=== PATIENT | female | born 1960 | race American Indian/Alaskan Native ===

== ENCOUNTER 2016-08-09 17:21 | Emergency (ER) | payer MEDICAID ==
[2016-08-09 17:21] VITALS: BMI 23.3
[2016-08-09 17:51] VITALS: RESP 14; TEMP 98.2
[2016-08-09] MEDS ORDERED: Sodium Chloride 0.9% 1,000 ML IV ONE (17:54)
--- NOTE | 2016-08-09 18:04 | C.PDOC ---
History Of Present Illness 56 y/o female, PMHx of cardiac disease 2 stents, presents to emergency department from the [facility] clinic today where she reportedly tripped on her cane and fell, landing on her knees. Patient states she walked 20 blocks today and has been feeling weak and lightheaded. Patient is a poor historian. Denies any chest pain, SOB, or other associated symptoms. Time Seen by Provider: 08/09/16 17:38 Chief Complaint (Nursing): Chest Pain History Per: Patient History/Exam Limitations: no limitations Onset/Duration Of Symptoms: Hrs Current Symptoms Are (Timing): Still Present Pain Scale Rating Of: 0 Additional History Per: EMS Past Medical History Reviewed: Historical Data, Nursing Documentation, Vital Signs Vital Signs: Last Vital Signs Temp 98.2 F 08/09/16 17:44 Pulse 61 08/09/16 17:44 Resp 14 08/09/16 17:44 BP 166/82 H 08/09/16 17:44 Pulse Ox 99 08/09/16 18:04 - Medical History PMH: Asthma, CVA, Depression, Diabetes, HTN, Hyperlipidemia - [facility] Procedures CONTRAST AORTOGRAM (04/23/13) CORONAR ARTERIOGR-2 CATH (04/23/13) INCIS W REM OF FORIEGN BODY OR DEV FROM SKIN & SUBCUT TISSUE (04/20/13) LEFT HEART CARDIAC CATH (04/23/13) LT HEART ANGIOCARDIOGRAM (04/23/13) Family History: States: Unknown Family Hx - Social History Hx Tobacco Use: No Hx Alcohol Use: No Hx Substance Use: Yes (methodone) - Immunization History Hx Tetanus Toxoid Vaccination: No Hx Influenza Vaccination: No Hx Pneumococcal Vaccination: No Review Of Systems Except As Marked, All Systems Reviewed And Found Negative. Constitutional: Positive for: Weakness. Negative for: Fever, Chills Cardiovascular: Positive for: Light Headedness. Negative for: Chest Pain, Palpitations Respiratory: Negative for: Shortness of Breath Gastrointestinal: Negative for: Nausea, Vomiting, Abdominal Pain Skin: Negative for: Rash Neurological: Negative for: Headache, Dizziness Physical Exam - Physical Exam Appears: Non-toxic, Other (lethargic, slurred speech) Skin: Warm, Dry Head: Atraumatic, Normacephalic Chest: Symmetrical Cardiovascular: Rhythm Regular Respiratory: Normal Breath Sounds, No Rales, No Rhonchi, No Wheezing Gastrointestinal/Abdominal: Soft, No Tenderness, No Guarding, No Rebound Back: Normal Inspection Extremity: Normal ROM, Capillary Refill (< 2 sec. ) Neurological/Psych: Oriented x3, Normal Speech, Normal Cognition ED Course And Treatment - Laboratory Results Result Diagrams: 08/09/16 18:26 08/09/16 18:26 Lab Interpretation: Abnormal (Blood sugar mildly elevated, urine with 19WBC, occ bacteria and 2+leukocyte esterase) ECG: Interpreted By Me ECG Rhythm: Sinus Bradycardia (with LVH), Nonspecific Changes ECG Interpretation: No Acute Changes O2 Sat by Pulse Oximetry: 99 (RA) Pulse Ox Interpretation: Normal Progress Note: EKG, Labs, fluids ordered. Reevaluation Time: 19:24 Reassessment Condition: Improved (Patient remains comfortable in ED. Patient has a prescription for Cipro given by Dr fernandes on 08/03 but has not taken any of the medication.) Disposition Counseled Patient/Family Regarding: Studies Performed, Diagnosis, Need For Followup, Rx Given - Disposition Referrals: Vida Fernandes MD [Staff Provider] - Disposition: HOME/ ROUTINE Disposition Time: 19:25 Condition: STABLE Additional Instructions: Take the Cipro as prescribed by Dr Fernandes last week. Instructions: Urinary Tract Infection in Women (ED) - Clinical Impression Clinical Impression: Urinary tract infectious disease - Scribe Statement The provider has reviewed the documentation as recorded by the Scribsherry Conn All medical record entries made by the Scribe were at my direction and personally dictated by me. I have reviewed the chart and agree that the record accurately reflects my personal performance of the history, physical exam, medical decision making, and the department course for this patient. I have also personally directed, reviewed, and agree with the discharge instructions and disposition.
[2016-08-09] MEDS ORDERED: Sodium Chloride 0.9% 1,000 ML ONE (18:26)
[2016-08-09 18:29] LABS: BASO % 0.6 % (0.0-2.0); EOS # 0.2 K/uL (0.0-0.7); HEMATOCRIT 40.1 % (34.0-47.0); LYMPH % 49.2 % (20.0-40.0); MEAN CELL VOLUME 95.3 fL (81.0-99.0); MEAN CORPUSCULAR HEMOGLOBIN 30.9 pg (27.0-31.0); MEAN CORPUSCULAR HGB CONC 32.5 g/dL (33.0-37.0); MEAN PLATELET VOLUME 9.8 fL (7.2-11.7); MONO # 0.5 K/uL (0.0-0.8); MONO % 5.9 % (0.0-10.0); NRBC % 0.1 % (0.0-2.0); RED CELL DISTRIBUTION WIDTH 13.4 % (11.5-14.5); WHITE BLOOD COUNT 8.1 K/uL (4.8-10.8)
[2016-08-09 18:43] LABS: CHLORIDE 96 mmol/L (98-107); POTASSIUM 4.2 mmol/L (3.6-5.2); SODIUM 132 mmol/L (132-148)
[2016-08-09 18:45] LABS: ALB/GLOB RATIO 1.2 (1.0-2.1); ALKALINE PHOSPHATASE 106 U/L (38-126); AST/SGOT 17 U/L (14-36); BILIRUBIN,TOTAL 0.7 mg/dL (0.2-1.3); CARBON DIOXIDE 25 mmol/L (22-30); GFR AFRICAN-AMERICAN > 60; TOTAL PROTEIN 7.2 g/dL (6.3-8.3)
[2016-08-09 18:46] LABS: ALT/SGPT 13 U/L (9-52); BLOOD UREA NITROGEN 11 mg/dL (7-17); CALCIUM 9.4 mg/dl (8.6-10.4); GLUCOSE,RANDOM 234 mg/dL (65-105)
[2016-08-09 19:06] LABS: RBC URINE 3 /hpf (0-3); URINE BACTERIA OCC (<OCC); URINE BILIRUBIN NEGATIVE (NEGATIVE); URINE BLOOD NEGATIVE (NEGATIVE); URINE COLOR Yellow (YELLOW); URINE GLUCOSE (UA) 1+ mg/dL (Normal); URINE KETONE NEGATIVE (NEGATIVE); URINE LEUKOCYTE ESTERASE 2+ Leu/uL (Negative); URINE PROTEIN NEGATIVE (NEGATIVE); URINE UROBILINOGEN NORMAL mg/dL (0.2-1.0); WBC URINE 19 /hpf (0-5)
[2016-08-09 19:56] VITALS: BP 140/80; PULSE 70; O2SAT 98
--- NOTE | 2016-08-13 15:32 | CARD ---
APPROVED REPORT EKG Measurement Heart [id number] <Conclusion> Sinus bradycardia Voltage criteria for left ventricular hypertrophy Nonspecific T wave abnormality Abnormal ECG
== END 2016-08-09 19:56 | disposition home or self-care (01) ==
LOC: C.ER 17:21
DX: N39.0 Urinary tract infection, site not specified (principal)
CPT/HCPCS: 80053; 80324; 80345; 80346; 80349; 80353; 80358; 80361; 81001; 82948; 83992; 84484; 85025; 93005; 96360; 99285; J7040

== ENCOUNTER 2016-08-10 06:28 | Emergency (ER) | payer MEDICAID ==
[2016-08-09 17:21] VITALS: BMI 23.3
== END 2016-08-10 07:30 | disposition left against medical advice (07) ==
LOC: C.ER 06:28
DX: M79.672 Pain in left foot (principal); M79.671 Pain in right foot; Z02.9 Encounter for administrative examinations, unspecified